=== PATIENT | male | born 1975 | race Caucasian/White ===

== ENCOUNTER 2022-04-18 00:51 | Emergency (ER) | payer OTHER ==
[~2022-04-18] VITALS: Ht 188 cm; Wt 104.3 kg
== END 2022-04-18 04:26 | disposition home or self-care (01) ==
LOC: ER 00:51
DX: S81.011A Laceration without foreign body, right knee, initial encounter (principal); W26.0XXA Contact with knife, initial encounter
CPT/HCPCS: 73560-RT; 90714; A9270

== ENCOUNTER 2022-12-16 17:02 | Emergency (ER) | payer OTHER ==
[~2022-12-16] VITALS: Ht 182.9 cm; Wt 90.7 kg
[2022-12-16 17:07] VITALS: BP 165/99
[2022-12-16] MEDS ORDERED: HYDHCL25 PO (18:55)
== END 2022-12-16 18:58 | disposition home or self-care (01) ==
LOC: ER 17:02
DX: L29.9 Pruritus, unspecified (principal); F17.290 Nicotine dependence, other tobacco product, uncomplicated
CPT/HCPCS: 99283

== ENCOUNTER 2023-04-08 22:59 | Emergency (ER) | payer OTHER ==
[~2023-04-08] VITALS: Ht 185.4 cm; Wt 108.9 kg
[~2023-04-08 22:59] MED LIST: HYDHCL25 PO
[2023-04-08 23:05] VITALS: BP 171/112
[2023-04-08] MEDS ORDERED: UNKNOWN ANTIBIOTIC (23:17)
== END 2023-04-08 23:18 | disposition home or self-care (01) ==
LOC: ER 22:59
DX: T81.31XA Disruption of external operation (surgical) wound, not elsewhere classified, initial encounter (principal); Y83.8 Other surgical procedures as the cause of abnormal reaction of the patient, or of later complication, without mention of misadventure at the time of the procedure
CPT/HCPCS: 99282